=== PATIENT | female | born 1965 | race African-American/Black ===

== ENCOUNTER 2021-04-18 15:40 | Emergency (ER) | payer OTHER ==
[~2021-04-18] VITALS: Ht 160 cm; Wt 70.3 kg
[~2021-04-18 15:40] MED LIST: ACETAMINOPHEN-1 EAC1 PO; ADVAIRDISKUS; AUGMENTIN 875875 M1 PO; CLEOCIN HCL300 MG PO; FLEXERIL PO; IBUPROFEN 800800 M1 PO; LISINOPRIL10 MG; NORCO 5-325 TA1 EACH PO; NORVASC10 MG; PENICILLIN VK250 MG PO; PERCOCET 5-3251 EACH PO; PREDNISONE 10 M10 M1 PO; PREDNISONE50 MG PO; VICODIN 5-5001 EACH PO
[2021-04-18] MEDS ORDERED: TRAZODONE HCL50 MG PO (15:54)
[2021-04-18] MEDS ORDERED: ZOLOFT50 M1 PO (15:54)
[2021-04-18] MEDS ORDERED: LISINOPRIL-HCT1 EACH PO (15:54)
[2021-04-18] MEDS ORDERED: BUSPIRONE HCL5 MG PO (15:54)
[2021-04-18] MEDS ORDERED: NORCO5 PO (16:51)
[2021-04-18] MEDS ORDERED: PENICILLIN V P500 MG PO (16:51)
[2021-04-18 17:02] VITALS: BP 102/72
== END 2021-04-18 17:03 | disposition home or self-care (01) ==
LOC: ER 15:40
DX: K08.89 Other specified disorders of teeth and supporting structures (principal); J45.909 Unspecified asthma, uncomplicated; I10 Essential (primary) hypertension; F17.210 Nicotine dependence, cigarettes, uncomplicated; Z79.899 Other long term (current) drug therapy; Z88.6 Allergy status to analgesic agent

== ENCOUNTER 2021-05-29 21:11 | Emergency (ER) | payer OTHER ==
[~2021-05-29] VITALS: Ht 162.6 cm; Wt 69.8 kg
[~2021-05-29 21:11] MED LIST changes: +BUSPIRONE HCL5 MG PO; +LISINOPRIL-HCT1 EACH PO; +NORCO5 PO; +PENICILLIN V P500 MG PO; +TRAZODONE HCL50 MG PO; +ZOLOFT50 M1 PO
[2021-05-29 21:12] VITALS: BP 134/80
[2021-05-29] MEDS ORDERED: PERIDEX15 ML SWISH&SPIT (22:03)
[2021-05-29] MEDS ORDERED: AMOXICILLIN875 MG PO (22:03)
== END 2021-05-29 22:08 | disposition home or self-care (01) ==
LOC: ER 21:11
DX: K02.9 Dental caries, unspecified (principal); J45.909 Unspecified asthma, uncomplicated; I10 Essential (primary) hypertension; Z79.899 Other long term (current) drug therapy; Z88.5 Allergy status to narcotic agent; Z88.9 Allergy status to unspecified drugs, medicaments and biological substances; Z91.041 Radiographic dye allergy status

== ENCOUNTER 2021-06-16 17:12 | Emergency (ER) | payer OTHER ==
[~2021-06-16] VITALS: Ht 162.6 cm; Wt 68.0 kg
[~2021-06-16 17:12] MED LIST changes: +AMOXICILLIN875 MG PO; +PERIDEX15 ML SWISH&SPIT
[2021-06-16 17:18] VITALS: BP 99/53
[2021-06-16] MEDS ORDERED: LISINOPRIL-HCT1 EACH PO (17:25)
[2021-06-16] MEDS ORDERED: ZOLOFT50 M1 PO (17:25)
[2021-06-16] MEDS ORDERED: BUSPAR30 MG PO (17:25)
[2021-06-16] MEDS ORDERED: PREDNISONE 10 M10 M1 PO (17:35)
[2021-06-16] MEDS ORDERED: IBUPROFEN 800800 M1 PO (17:35)
== END 2021-06-16 18:32 | disposition home or self-care (01) ==
LOC: ER 17:12
DX: M79.644 Pain in right finger(s) (principal); J45.909 Unspecified asthma, uncomplicated; I10 Essential (primary) hypertension; Z79.899 Other long term (current) drug therapy; Z79.1 Long term (current) use of non-steroidal anti-inflammatories (NSAID); Z88.6 Allergy status to analgesic agent; Z91.041 Radiographic dye allergy status; Z88.5 Allergy status to narcotic agent; Z88.8 Allergy status to other drugs, medicaments and biological substances; Z91.018 Allergy to other foods